=== PATIENT | female | born 1930 | race Caucasian/White ===

== ENCOUNTER 2019-01-09 16:34 | Emergency (ER) | payer MEDICARE, BC ==
[2019-01-09] MEDS ORDERED: Labetalol 20 MG/4 ML Syringe IVPUSH ONE (17:15)
[2019-01-09] MEDS ORDERED: cloNIDine 0.1 MG Tab PO STA ×2 (17:52→17:54)
[2019-01-09] MEDS ORDERED: cloNIDine 0.1 MG Tab ONE (17:54)
--- NOTE | 2019-01-09 19:42 | EDM.PDOC ---
ED HPI GENERAL MEDICAL PROBLEM - General Chief Complaint: Neurological Problem Stated Complaint: FELL ON TUESDAY Time Seen by Provider: 01/09/19 16:34 Source of Information: Reports: Patient, Family History Limitations: Reports: No Limitations - History of Present Illness INITIAL COMMENTS - FREE TEXT/NARRATIVE: 88 y.o.w.f with a h/o HTN came to the clinic today because of a fall onto her face while picking something up from the floor 4 days ago. Pt had no LOC at the that time and is now in her usual state of health. She came to the clinic because of her facial ecchymosis fro last Tuesday. Her SBP was in the clinic initially 130. as the pt was examined her BP was 228/93 and the was transferred to the Ed for further care and evaluation. Pt denied H/A, N/V/D or dizziness or any other acute medical issues. Pulse 73 Temp 37.3 RR 18 Pulse ox 99% on RA Onset Date: 01/06/19 Onset Time: 07:00 Duration: Improving Location: Reports: Face Quality: Reports: Dull Severity: Mild Improves with: Reports: Cold Therapy Worsens with: Reports: None Context: Reports: Trauma (fell on her face while picking up something from the floor) - Related Data Allergies Allergy/AdvReac Type Severity Reaction Status Date / Time Sulfa (Sulfonamide Allergy Cannot Verified 01/09/19 21:00 Antibiotics) Remember Home Meds: Home Meds Warfarin Sodium 2.5 mg PO DAILY 10/14/14 [History] Acetaminophen [Tylenol Arthritis Pain] 1 tab BID 01/09/19 [History] Aspirin [[place] Aspirin] 81 mg PO DAILY 01/09/19 [History] Lisinopril/Hydrochlorothiazide [Lisinopril-Hctz 10-12.5 mg Tab] 1 tab DAILY [History] Phytonadione [Vitamin K] 100 mcg PO DAILY 01/09/19 [History] Past Medical History Cardiovascular History: Reports: Afib, Heart Valve Replacement, High Cholesterol , Hypertension Genitourinary History: Reports: UTI, 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 History: Musculoskeletal History: Reports: Arthritis Neurological History: Reports: CVA, TIA 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 Psychiatric History: Reports: Dementia Endocrine/Metabolic History: Reports: Obesity/BMI 30+ Hematologic History: Reports: Anticoagulation Therapy - Infectious Disease History Infectious Disease History: Reports: Chicken Pox, Measles, Mumps - Past Surgical History Cardiovascular Surgical History: Reports: Valve Replacement GI Surgical History: Reports: Appendectomy, Cholecystectomy, Colonoscopy Social & Family History - Tobacco Use Smoking Status *Q: Never Smoker - Caffeine Use Caffeine Use: Reports: None - Recreational Drug Use Recreational Drug Use: No ED ROS GENERAL - Review of Systems Review Of Systems: See Below Constitutional: Reports: No Symptoms HEENT: Reports: No Symptoms Respiratory: Reports: No Symptoms Cardiovascular: Reports: No Symptoms Endocrine: Reports: No Symptoms GI/Abdominal: Reports: No Symptoms : Reports: No Symptoms Musculoskeletal: Reports: No Symptoms Skin: Reports: Other Neurological: Reports: No Symptoms Psychiatric: Reports: No Symptoms Hematologic/Lymphatic: Reports: No Symptoms Immunologic: Reports: No Symptoms ED EXAM, GENERAL - Physical Exam Exam: See Below Exam Limited By: No Limitations General Appearance: Alert, WD/WN, Mild Distress, Obese Eye Exam: Bilateral Eye: Normal Inspection Ears: Normal External Exam Ear Exam: Bilateral Ear: Auricle Normal Nose: Normal Inspection, Normal Mucosa, No Blood Throat/Mouth: Normal Lips, Normal Voice, No Airway Compromise Head: Normocephalic, Other (facial ecchymosis) Neck: Normal Inspection, Supple, Non-Tender, Full Range of Motion Respiratory/Chest: No Respiratory Distress, Lungs Clear, Normal Breath Sounds Cardiovascular: Normal Peripheral Pulses, Regular Rate, Rhythm, No Edema, No Gallop, No JVD, No Rub, Other (h/o AO valve replacement ) Peripheral Pulses: 1+: Brachial (R) GI/Abdominal: Normal Bowel Sounds, Soft, Non-Tender, No Organomegaly, No Abnormal Bruit, No Mass, Pelvis Stable (Female) Exam: Deferred Rectal (Female) Exam: Deferred Back Exam: Normal Inspection, Full Range of Motion Extremities: Normal Inspection, Normal Range of Motion Neurological: Alert, Oriented, CN II-XII Intact, Normal Cognition, Normal Gait Psychiatric: Normal Affect, Normal Mood Skin Exam: Warm, Dry, Intact, Normal Color, Ecchymosis (at face) Lymphatic: No Adenopathy EKG INTERPRETATION EKG Date: 01/09/19 Time: 15:40 Rhythm: A-Fib Rate (Beats/Min): 86 [place]: Normal P-Wave: Absent QRS: Normal ST-T: Normal QT: Prolonged Comparison: NA - No Prior EKG Course - Vital Signs Text/Narrative:: 88 y.o.w.f with a h/o HTN came to the clinic today because of a fall onto her face while picking something up from the floor 4 days ago. Pt had no LOC at the that time and is now in her usual state of health. She came to the clinic because of her facial ecchymosis fro last Tuesday. Her SBP was in the clinic initially 130. as the pt was examined her BP was 228/93 and the was transferred to the Ed for further care and evaluation. Pt denied H/A, N/V/D or dizziness or any other acute medical issues. Pulse 73 Temp 37.3 RR 18 Pulse ox 99% on RA PE: WNWD W F with hypertensive urgency and a facial Ecchymosis, pt is on Coumadin, pt was ambulating fine, no focal weakness Labs: INR was 1.9 in the clinic Imaging: pt refused, not clearly indicated Impression: HTN urgency, Fall 4 days ago. Facial Ecchymosis Tx: Clonidine Reexam: BP on D/C was 138/48, pt was in her usual state of health. Plan: D/C with instructions + Last Recorded V/S: Last Vital Signs Temp 37.3 C 01/09/19 16:34 Pulse 61 01/09/19 19:30 Resp 18 01/09/19 19:30 BP 138/48 L 01/09/19 19:30 Pulse Ox 98 01/09/19 19:30 - Orders/Labs/Meds Labs: Laboratory Tests 01/09/19 Range/Units 19:00 Urine Color Yellow (YELLOW) Urine Appearance Clear (CLEAR) Urine pH 7.0 H (5.0-6.5) Ur Specific [place] 1.010 (1.010-1.025) Urine Protein Negative (NEGATIVE) mg/dL Urine Glucose (UA) Normal (NEGATIVE) mg/dL Urine Ketones Negative (NEGATIVE) mg/dL Urine Occult Blood Negative (NEGATIVE) Urine Nitrite Negative (NEGATIVE) Urine Bilirubin Negative (NEGATIVE) Urine Urobilinogen Normal (NEGATIVE) mg/dL Ur Leukocyte Esterase Negative (NEGATIVE) Urine RBC 0-5 (0) Urine WBC 0-5 (0) Ur Squamous Epith Cells Occasional (NS,R,O) Urine Bacteria Rare H (NS) Meds: Medications Discontinued Medications Generic Name Dose Route Start Last Admin Trade Name Prakash PRN Reason Stop Dose Admin Clonidine HCl 0.1 mg 01/09/19 17:52 01/09/19 20:19 Catapres PO 01/09/19 17:53 Not Given DAILY STA Clonidine HCl 0.1 mg 01/09/19 17:54 01/09/19 17:55 Catapres PO 01/09/19 17:55 0.1 mg ONETIME STA Administration Clonidine HCl Confirm 01/09/19 17:54 01/09/19 20:19 Catapres Administered 01/09/19 17:55 Not Given Dose 0.1 mg .ROUTE .STK-MED ONE Labetalol HCl 20 mg 01/09/19 17:15 01/09/19 20:20 Normodyne IVPUSH 01/09/19 17:16 Not Given ONETIME ONE Protocol Departure - Departure Time of Disposition: 19:42 Disposition: Home, Self-Care 01 Condition: Good Clinical Impression: HTN (hypertension) Qualifiers: Hypertension type: unspecified Qualified Code(s): I10 - Essential (primary) hypertension - Discharge Information Instructions: Managing Your Hypertension, Hypertension Referrals: Obey Brown MD [Primary Care Provider] - Forms: ED Department Discharge Additional Instructions: Please cont your current meds, please check your BP twice daily for next 3 days , follow up, come back if your symptoms get worse acutely
== END 2019-01-09 19:55 | disposition home or self-care (01) ==
LOC: FB.ED 16:34
DX: I16.0 Hypertensive urgency (principal); S00.83XA Contusion of other part of head, initial encounter; I48.91 Unspecified atrial fibrillation; E78.00 Pure hypercholesterolemia, unspecified; I10 Essential (primary) hypertension; Z79.82 Long term (current) use of aspirin; Z79.899 Other long term (current) drug therapy; Z79.01 Long term (current) use of anticoagulants; Z95.4 Presence of other heart-valve replacement; W18.30XA Fall on same level, unspecified, initial encounter
CPT/HCPCS: 81001; 99283; A9270